=== PATIENT | male | born 1955 | race Caucasian/White ===

== ENCOUNTER → 2017-12-24 10:21 | Outpatient (CLI) | payer OTHER, SELFPAY ==
[2017-12-24 11:38] LABS: Alanine Aminotransferase 42 IU/L (21-72); Albumin 4.8 g/dL (3.5-5.0); Albumin Globulin Ratio 1.8 (1.0-2.8); Alkaline Phosphatase 48 U/L (38-126); Aspartate Aminotransferase 40 IU/L (17-59); BUN Creatinine Ratio 18.8 (6-22); Bilirubin Total 0.7 mg/dL (0.2-1.3); Blood Urea Nitrogen 15 mg/dL (9-20); Carbon Dioxide 33 mmol/L (22-32); Chloride 100 mmol/L (98-107); Cholesterol 180 mg/dL (140-199); Estimated Glomerular Filt Rate > 60.0 mL/min (>60); Globulin 2.7 g/dL (1.7-4.1); Glucose 88 mg/dL (80-110); HDL Cholesterol 54 mg/dL (40-60); HEMOLYSIS < 15 (0-50); LDL Cholesterol Calculated 95 mg/dL (<100); Potassium 4.8 mmol/L (3.4-5.1); Sodium 142 mmol/L (137-145); Total Protein 7.5 g/dL (6.3-8.2); Triglycerides 155 mg/dL (35-150)
[2017-12-24 11:54] LABS: Free T4, Direct Thyroxine 1.23 ng/dL (0.78-2.19)
[2017-12-24 12:08] LABS: Prostate Specific Antigen Scrn 0.696 ng/mL (0.1-4.0); Thyroid Stimulating Hormone 5.57 uIU/mL (0.47-4.68)
[2017-12-25 14:19] LABS: Ionized Calcium 5.8 mg/dL (4.8-5.6)
[2017-12-25 16:41] LABS: Parathyroid Hormone Int 62 pg/mL (14-64)
== END ==
PROVIDERS: Family Provider Internal Medicine; PCP Internal Medicine; Visit Provider Internal Medicine
DX: E03.8 Other specified hypothyroidism (principal); E21.3 Hyperparathyroidism, unspecified; E27.1 Primary adrenocortical insufficiency; E78.5 Hyperlipidemia, unspecified; Z12.5 Encounter for screening for malignant neoplasm of prostate
CPT/HCPCS: 36415; 80053; 80061; 82330; 83970; 84439; 84443; G0103

== ENCOUNTER → 2017-12-27 12:42 | Outpatient (CLI) | payer OTHER, SELFPAY | PROVIDERS: Family Provider Internal Medicine; PCP Internal Medicine; Visit Provider Internal Medicine | DX: M85.852 Other specified disorders of bone density and structure, left thigh (principal); E21.3 Hyperparathyroidism, unspecified; E27.1 Primary adrenocortical insufficiency; E03.8 Other specified hypothyroidism; Z82.62 Family history of osteoporosis | CPT/HCPCS: 77080 ==

== ENCOUNTER → 2018-07-19 07:26 | Outpatient (CLI) | payer MEDICARE, OTHER, SELFPAY ==
--- NOTE | 2018-07-19 10:34 | PM.TREADMILL ---
Cardiac Stress Test Report Referral & Results Date Patient Seen: 07/19/18 Requesting provider: Ava Covarrubias Indication: Chest Pain Procedure Note: Today following both written and verbal informed consent, the patient was exercised according to a standard Asa protocol. The patient exercised for a total of 11:37 achieving a maximum heart rate of 159. Patient's maximum systolic blood pressure was 170/90. This was an estimated 12.8 MET's. Impression: No signs or symptoms of ischemia or angina. Symptoms were not reproducible on exercise. No ischemic indicators on EKG. Functional impairment approximately-20% on the active scale. Frequent PVCs demonstrated on EKG. Low probability for ischemia. Please note: Actual ECG tracings can be found in the PACS system.
== END ==
PROVIDERS: Family Provider Internal Medicine; PCP Internal Medicine; Visit Provider Hospitalist
DX: R07.9 Chest pain, unspecified (principal)
CPT/HCPCS: 93016; 93017; 93018

== ENCOUNTER → 2019-01-04 08:54 | Outpatient (CLI) | payer MEDICARE, OTHER, SELFPAY ==
[2019-01-04 11:07] LABS: Alanine Aminotransferase 46 IU/L (<50); Albumin 4.7 g/dL (3.5-5.0); Albumin Globulin Ratio 1.7 (1.0-2.8); Alkaline Phosphatase 54 U/L (38-126); Aspartate Aminotransferase 45 IU/L (17-59); BUN Creatinine Ratio 22.5 (6-22); Bilirubin Total 0.6 mg/dL (0.2-1.3); Blood Urea Nitrogen 18 mg/dL (9-20); Carbon Dioxide 32 mmol/L (22-32); Chloride 100 mmol/L (98-107); Cholesterol 191 mg/dL (140-199); Estimated Glomerular Filt Rate > 60.0 mL/min (>60); Globulin 2.8 g/dL (1.7-4.1); Glucose 89 mg/dL (80-110); HDL Cholesterol 41 mg/dL (40-60); HEMOLYSIS < 15 (0-50); LDL Cholesterol Calculated 120 mg/dL (<100); Potassium 4.5 mmol/L (3.4-5.1); Sodium 139 mmol/L (137-145); Total Protein 7.5 g/dL (6.3-8.2); Triglycerides 148 mg/dL (35-150)
[2019-01-04 11:22] LABS: Free T4, Direct Thyroxine 1.47 ng/dL (0.78-2.19)
[2019-01-04 11:36] LABS: Prostate Specific Antigen Scrn 0.692 ng/mL (0.1-4.0); Thyroid Stimulating Hormone 0.89 uIU/mL (0.47-4.68)
[2019-01-07 16:35] LABS: Parathyroid Hormone Int 56 pg/mL (14-64)
== END ==
PROVIDERS: PCP Internal Medicine; Visit Provider Internal Medicine
DX: Z12.5 Encounter for screening for malignant neoplasm of prostate (principal); E03.8 Other specified hypothyroidism; E21.3 Hyperparathyroidism, unspecified; E27.1 Primary adrenocortical insufficiency; E78.5 Hyperlipidemia, unspecified
CPT/HCPCS: 36415; 80053; 80061; 83970; 84439; 84443; G0103

== ENCOUNTER → 2019-09-20 08:25 | Outpatient (CLI) | payer MEDICARE, OTHER, SELFPAY ==
[2019-09-20 09:11] LABS: Alanine Aminotransferase 31 IU/L (<50); Albumin 4.8 g/dL (3.5-5.0); Albumin Globulin Ratio 1.5 (1.0-2.8); Alkaline Phosphatase 50 U/L (38-126); Aspartate Aminotransferase 35 IU/L (17-59); BUN Creatinine Ratio 24.7 (6-22); Bilirubin Total 0.7 mg/dL (0.2-1.3); Blood Urea Nitrogen 22 mg/dL (9-20); Calcium 11.4 mg/dL (8.4-10.2); Carbon Dioxide 30 mmol/L (22-32); Chloride 100 mmol/L (98-107); Cholesterol 187 mg/dL (140-199); Estimated Glomerular Filt Rate > 60.0 mL/min (>60); Globulin 3.1 g/dL (1.7-4.1); Glucose 100 mg/dL (80-110); HDL Cholesterol 48 mg/dL (40-60); HEMOLYSIS < 15 (0-50); LDL Cholesterol Calculated 121 mg/dL (<100); Magnesium 2.2 mg/dL (1.6-2.3); Potassium 4.6 mmol/L (3.4-5.1); Sodium 136 mmol/L (137-145); Total Protein 7.9 g/dL (6.3-8.2); Triglycerides 88 mg/dL (35-150)
[2019-09-20 09:29] LABS: Free T4, Direct Thyroxine 1.33 ng/dL (0.78-2.19)
[2019-09-20 09:42] LABS: Prostate Specific Antigen Scrn 0.542 ng/mL (0.1-4.0)
[2019-09-20 09:43] LABS: Thyroid Stimulating Hormone 2.27 uIU/mL (0.47-4.68)
== END ==
PROVIDERS: PCP Internal Medicine; Referring Provider Internal Medicine; Visit Provider Internal Medicine
DX: E03.8 Other specified hypothyroidism (principal); E21.3 Hyperparathyroidism, unspecified; E27.1 Primary adrenocortical insufficiency; E78.5 Hyperlipidemia, unspecified; Z12.5 Encounter for screening for malignant neoplasm of prostate
CPT/HCPCS: 36415; 80053; 80061; 83735; 84439; 84443; G0103

== ENCOUNTER → 2019-10-04 14:02 | Outpatient (CLI) | payer MEDICARE, OTHER, SELFPAY ==
--- NOTE | 2019-10-20 16:20 | P.HOLT.S_ITS ---
[employer] Special [employer] Report Referral & Results Date Patient Seen: 10/04/19 Requesting provider: Quoc Barber Indication: Palpitations Duration of monitoring (days): 7 Diary information: There were 14 patient triggered events and 3 patient diary entries All of these events were associated (within 45 seconds) with sinus rhythm, PVCs, PACs, ventricular bigeminy, ventricular trigeminy Data: Minimum heart rate identified was 39 beats per minute at 02:31 on 10/06/2019 Maximum sinus heart rate was 142 beats per minute at 15:18 on 10/11/2019 Maximum overall heart rate was 193 beats per minute at 15:44 on 10/10/2019 during a 4 beat run of SVT Less than 1% of identified beats were supraventricular ectopic in origin Approximately 6.2% of identified beats were ventricular ectopic in origin which is a frequent dysrhythmia. These episodes included a 3 minutes 22nd run of ventricular trigeminy and a 1 minutes 52nd run of ventricular bigeminy Patient had 17 runs of SVT/atrial tachycardia the fastest being the 4 beat run as above and the longest being 9 beats at a rate of 103 which suggest atrial tachycardia Patient also had a 4 beat run of ventricular tachycardia Impression: Prominent primarily ventricular dysrhythmias above. Patient's sense of palpitations almost certainly due to these PVCs in some combination Clinical correlation suggested
== END ==
PROVIDERS: Family Provider Internal Medicine; PCP Internal Medicine; Referring Provider Internal Medicine; Visit Provider Internal Medicine
DX: R00.2 Palpitations (principal)
CPT/HCPCS: 0296T; 0298T

== ENCOUNTER → 2020-08-23 14:51 | Outpatient (CLI) | payer MEDICARE, OTHER, SELFPAY ==
[2020-08-23 18:16] LABS: Prostate Specific Antigen Scrn 0.656 ng/mL (0.1-4.0)
== END ==
PROVIDERS: Family Provider Internal Medicine; PCP Internal Medicine; Referring Provider Internal Medicine; Visit Provider Internal Medicine
DX: Z12.5 Encounter for screening for malignant neoplasm of prostate (principal)
CPT/HCPCS: 36415; G0103

== ENCOUNTER → 2021-02-14 14:17 | Outpatient (CLI) | payer MEDICARE, OTHER, SELFPAY ==
[2021-02-14 15:53] LABS: BUN Creatinine Ratio 18.3 (6-22); Blood Urea Nitrogen 22 mg/dL (9-20); Carbon Dioxide 32 mmol/L (22-32); Chloride 103 mmol/L (98-107); Estimated Glomerular Filt Rate > 60.0 mL/min (>60); Glucose 97 mg/dL (80-110); HEMOLYSIS < 15 (0-50); Potassium 4.9 mmol/L (3.4-5.1); Sodium 140 mmol/L (137-145)
[2021-02-14 17:00] LABS: Vitamin D 25 Hydroxy (D3) 41.4 ng/mL (30.0-100.0)
[2021-02-15 08:47] LABS: Parathyroid Hormone Int 67 pg/mL (15-65)
== END ==
PROVIDERS: Family Provider Internal Medicine; PCP Internal Medicine; Referring Provider Internal Medicine Endocrinology, Diabetes & Metabolism; Visit Provider Psychiatry & Neurology Neurology
DX: E21.0 Primary hyperparathyroidism (principal)
CPT/HCPCS: 36415; 80048; 82306; 83970

== ENCOUNTER → 2021-10-03 10:22 | Outpatient (CLI) | payer MEDICARE, OTHER, SELFPAY ==
--- NOTE | 2021-10-03 10:25 | DI.RAD.S_ITS ---
PROCEDURE: XR CHEST 2V INDICATIONS: chest discomfort TECHNIQUE: 2 views of the chest were acquired. COMPARISON: None. FINDINGS: Surgical changes and devices: None. Lungs and pleura: Lungs are clear. No pleural effusions or pneumothorax. Mediastinum: Mediastinal contours are normal. Heart size is normal. Bones and chest wall: No suspicious bony abnormalities. Soft tissues appear unremarkable. IMPRESSION: No acute cardiothoracic abnormality. Dictated by: Alexandru Ibrahim M.D. on 10/03/2021 at 12:20 Approved by: Alexandru Ibrahim M.D. on 10/03/2021 at 12:21
== END ==
PROVIDERS: Family Provider Internal Medicine; PCP Internal Medicine; Referring Provider Internal Medicine; Visit Provider Internal Medicine
DX: R07.9 Chest pain, unspecified (principal)
CPT/HCPCS: 71046

== ENCOUNTER → 2021-10-16 07:28 | Outpatient (CLI) | payer MEDICARE, OTHER, SELFPAY ==
[2021-10-16 09:13] LABS: Add Manual Diff / Slide Review NO; Basophils Absolute Auto 0 /uL (0-100); Basophils Percent Auto 0.7 % (0-2); Eosinophils Absolute Auto 200 /uL (0-450); Eosinophils Percent Auto 4.2 % (2-4); Hematocrit 41.9 % (41-53); Hemoglobin 14.4 g/dL (13.5-17.5); Lymphocytes Absolute Auto 1800 /uL (1100-4500); Lymphocytes Percent Auto 33.4 % (25-40); Mean Corpuscular HGB Conc 34.5 % (30-36); Mean Corpuscular Hemoglobin 29.8 PG (26-34); Mean Corpuscular Volume 86.5 fL (80-100); Monocytes Absolute Auto 500 /uL (0-900); Monocytes Percent Auto 8.6 % (3-14); Neutrophils Absolute Auto 2800 /uL (1500-7000); Neutrophils Percent Auto 53.1 % (50-75); Platelet Count 175 X10^3/uL (150-400); Red Blood Cell Count 4.84 X10^6/uL (4.5-5.9); Red Cell Distribution Width 13.4 % (11.6-14.8); White Blood Cell Count 5.3 X10^3/uL (4.5-11.0)
[2021-10-16 09:31] LABS: Alanine Aminotransferase 28 IU/L (<50); Albumin 4.1 g/dL (3.5-5.0); Albumin Globulin Ratio 1.5 (1.0-2.8); Alkaline Phosphatase 45 U/L (38-126); Aspartate Aminotransferase 34 IU/L (17-59); BUN Creatinine Ratio 18.5 (6-22); Bilirubin Total 0.6 mg/dL (0.2-1.3); Blood Urea Nitrogen 15 mg/dL (9-20); Calcium 10.5 mg/dL (8.4-10.2); Carbon Dioxide 31 mmol/L (22-32); Chloride 104 mmol/L (98-107); Cholesterol 173 mg/dL (140-199); Estimated Glomerular Filt Rate > 60 mL/min (>60); Globulin 2.7 g/dL (1.7-4.1); Glucose 78 mg/dL (80-110); HDL Cholesterol 48 mg/dL (40-60); HEMOLYSIS < 15 (0-50); LDL Cholesterol Calculated 97 mg/dL (<100); Potassium 4.4 mmol/L (3.4-5.1); Sodium 139 mmol/L (137-145); Total Protein 6.8 g/dL (6.3-8.2); Triglycerides 139 mg/dL (35-150); Uric Acid 5.3 mg/dL (3.5-8.5)
[2021-10-16 09:58] LABS: Free T4, Direct Thyroxine 1.21 ng/dL (0.78-2.19)
[2021-10-16 10:00] LABS: Prostate Specific Antigen Scrn 0.637 ng/mL (0.1-4.0)
[2021-10-16 10:11] LABS: Thyroid Stimulating Hormone 2.28 uIU/mL (0.47-4.68)
[2021-10-16 18:28] LABS: Vitamin D 25 Hydroxy (D3) 32.9 ng/mL (30.0-100.0)
[2021-10-17 05:28] LABS: Parathyroid Hormone Int 44 pg/mL (15-65)
== END ==
PROVIDERS: Family Provider Internal Medicine; PCP Internal Medicine; Referring Provider Internal Medicine; Visit Provider Internal Medicine
DX: E03.8 Other specified hypothyroidism (principal); Z12.5 Encounter for screening for malignant neoplasm of prostate; I10 Essential (primary) hypertension; M25.50 Pain in unspecified joint; E21.3 Hyperparathyroidism, unspecified; E78.5 Hyperlipidemia, unspecified; E27.1 Primary adrenocortical insufficiency; R07.9 Chest pain, unspecified
CPT/HCPCS: 36415; 80053; 80061; 82306; 83970; 84439; 84443; 84550; 85025; G0103

== ENCOUNTER → 2022-11-17 09:30 | Outpatient (CLI) | payer MEDICARE, OTHER, SELFPAY ==
[2022-11-17 11:48] LABS: Alanine Aminotransferase 31 IU/L (<50); Albumin 4.3 g/dL (3.5-5.0); Albumin Globulin Ratio 1.6 (1.0-2.8); Alkaline Phosphatase 42 U/L (38-126); Aspartate Aminotransferase 35 IU/L (17-59); BUN Creatinine Ratio 22.1 (6-22); Bilirubin Total 0.6 mg/dL (0.2-1.3); Blood Urea Nitrogen 17 mg/dL (9-20); Calcium 11.3 mg/dL (8.4-10.2); Carbon Dioxide 30 mmol/L (22-32); Chloride 104 mmol/L (98-107); Cholesterol 181 mg/dL (140-199); Estimated Glomerular Filt Rate > 60 mL/min (>60); Globulin 2.7 g/dL (1.7-4.1); Glucose 88 mg/dL (80-110); HDL Cholesterol 61 mg/dL (40-60); HEMOLYSIS < 15 (0-50); LDL Cholesterol Calculated 105 mg/dL (<100); Potassium 4.7 mmol/L (3.4-5.1); Sodium 139 mmol/L (137-145); Triglycerides 73 mg/dL (35-150)
[2022-11-17 12:17] LABS: Prostate Specific Antigen Scrn 0.579 ng/mL (0.1-4.0)
[2022-11-19 06:38] LABS: Parathyroid Hormone Int 42 pg/mL (15-65)
== END ==
PROVIDERS: Family Provider Internal Medicine; PCP Internal Medicine; Referring Provider Internal Medicine; Visit Provider Internal Medicine
DX: E03.8 Other specified hypothyroidism (principal); Z12.5 Encounter for screening for malignant neoplasm of prostate; I10 Essential (primary) hypertension; E21.3 Hyperparathyroidism, unspecified; E27.1 Primary adrenocortical insufficiency
CPT/HCPCS: 36415; 80053; 80061; 83970; G0103

== ENCOUNTER → 2022-11-30 14:11 | Outpatient (CLI) | payer MEDICARE, OTHER, SELFPAY ==
[2022-11-30 15:34] LABS: Add Manual Diff / Slide Review NO; Basophils Absolute Auto 0 /uL (0-100); Basophils Percent Auto 0.6 % (0-2); Eosinophils Absolute Auto 100 /uL (0-450); Eosinophils Percent Auto 1.2 % (2-4); Hematocrit 44.1 % (41-53); Hemoglobin 15.4 g/dL (13.5-17.5); Lymphocytes Absolute Auto 1400 /uL (1100-4500); Lymphocytes Percent Auto 18.1 % (25-40); Mean Corpuscular HGB Conc 34.8 % (30-36); Mean Corpuscular Hemoglobin 30.6 PG (26-34); Monocytes Absolute Auto 500 /uL (0-900); Monocytes Percent Auto 6.1 % (3-14); Neutrophils Absolute Auto 5800 /uL (1500-7000); Platelet Count 210 X10^3/uL (150-400); Red Blood Cell Count 5.02 X10^6/uL (4.5-5.9); Red Cell Distribution Width 13.7 % (11.6-14.8); White Blood Cell Count 7.8 X10^3/uL (4.5-11.0)
[2022-11-30 16:10] LABS: Alanine Aminotransferase 30 IU/L (<50); Albumin 4.4 g/dL (3.5-5.0); Albumin Globulin Ratio 1.4 (1.0-2.8); Alkaline Phosphatase 43 U/L (38-126); Aspartate Aminotransferase 33 IU/L (17-59); Bilirubin Total 0.4 mg/dL (0.2-1.3); Blood Urea Nitrogen 23 mg/dL (9-20); C-Reactive Protein Quant < 0.5 mg/dL (<1.0); Calcium 10.6 mg/dL (8.4-10.2); Carbon Dioxide 28 mmol/L (22-32); Chloride 102 mmol/L (98-107); Creatine Kinase 90 U/L (55-170); Estimated Glomerular Filt Rate > 60 mL/min (>60); Globulin 3.1 g/dL (1.7-4.1); Glucose 133 mg/dL (80-110); HEMOLYSIS < 15 (0-50); Potassium 4.1 mmol/L (3.4-5.1); Sodium 136 mmol/L (137-145); Total Protein 7.5 g/dL (6.3-8.2)
[2022-11-30 16:19] LABS: Erythrocyte Sedimentation Rate 1 MM/HR (0-15)
[2022-11-30 16:23] LABS: Free T4, Direct Thyroxine 0.78 ng/dL (0.78-2.19)
[2022-11-30 16:37] LABS: Thyroid Stimulating Hormone 9.93 uIU/mL (0.47-4.68)
== END ==
PROVIDERS: Family Provider Internal Medicine; PCP Internal Medicine; Referring Provider Internal Medicine; Visit Provider Internal Medicine
DX: E03.8 Other specified hypothyroidism (principal); I10 Essential (primary) hypertension; E21.3 Hyperparathyroidism, unspecified; M79.10 Myalgia, unspecified site
CPT/HCPCS: 36415; 80053; 82550; 84439; 84443; 85025; 85651; 86140

== ENCOUNTER 2023-06-17 12:17 | Day surgery (SDC) | payer MEDICARE, OTHER, SELFPAY ==
--- NOTE | 2023-06-17 | PATH_ITS ---
[facility] Accession Number: [id number] No. of containers..02 Tissue . 01 Material submitted: . PART A: stomach - ANTRUM PART B: stomach - FUNDUS . 01 Diagnosis: A. GASTRIC ANTRUM, BIOPSY: Gastric antral mucosa with mild chronic inflammation. Negative for Helicobacter organisms by immunohistochemistry. Negative for intestinal metaplasia. Negative for dysplasia or malignancy. . B. GASTRIC FUNDUS, BIOPSY: Features suggestive of fundic gland polyp. No evidence of Helicobacter organisms on H/E stain. Negative for intestinal metaplasia. Negative for dysplasia and malignancy. FRR 06/25/2023 1331 Local . 01 Electronically signed: . Leroy Samuel MD, PhD, Pathologist NPI- [id number] . 01 Gross description: . Part A: ANTRUM: Received in formalin are 2 fragment(s) of joyner, soft tissue measuring 0.1 x 0.1 x 0.1 cm to 0.3 x 0.3 x 0.2 cm submitted entirely in 1 cassette(s) Part B: FUNDUS: Received in formalin are 2 fragment(s) of joyner, soft tissue measuring 0.2 x 0.2 x 0.2 cm to 0.3 x 0.3 x 0.2 cm submitted entirely in 1 cassette(s) /NAOMY 06/21/2023 2307 Local . 01 Microscopic: . A. An immunohistochemical stain was performed to evaluate for Helicobacter organisms and is negative. The control stain showed appropriate reactivity. . * This test was developed and its performance characteristics determined by [facility]. It has not been cleared or approved by the U.S. Food and Drug Administration. The FDA has determined that such clearance or approval is not necessary. This test is used for clinical purposes. It should not be regarded as investigational or for research. . 01 Pathologist provided ICD-10: K29.70, K31.7 . 01 CPT . 514686, 586676, S16166 Specimen Comment: A courtesy copy of this report has been sent to [phone] Performed at: 01 [facility] [address] [place] [id number] MD Rito Grimes MD Phone: [phone]
[2023-06-17 13:09] VITALS: BP 178/78; PULSE 54; RESP 14; TEMP 36.3; O2SAT 100
[2023-06-17] MEDS: LACTATED RINGERS 1,000 ML 42 ML IV (13:29)
--- NOTE | 2023-06-17 13:45 | P.HP_ITS ---
History of Present Illness History of Present Illness Date Patient Seen: 06/17/23 Time Patient Seen: 13:45 [place] [facility] [place] Oral is a 67-year-old man who presents for a colonoscopy and an esophagogastroduodenoscopy. His last colonoscopy was about [address] Mead describes his colon as ?granular?. He also experiences reflux and occasional pain with swallowing. He has also had a history of a peptic ulcer in the past. 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) Atrial fibrillation (~1983) BPH (benign prostatic hyperplasia) Cardiac arrhythmia (~1984) Chicken pox (~1987) Depression (~1969) Diarrhea Essential hypertension Gastric ulcer (~2012) Gastroesophageal reflux disease (03/23/13) Hearing deficit Hyperparathyroidism (01/22/14) Hyperthyroidism (~1971) Measles (~1959) Mumps (~1959) Other and unspecified hyperlipidemia (01/07/11) Other specified hypothyroidism (01/07/11) Palpitations PVCs (premature ventricular contractions) Stroke (~2012) TIA (transient ischemic attack) (~2012) Vision disorder Surgical History Anesthesia History of tonsillectomy (~1959) Status post colonoscopy Family History Father Fam hx-ischem heart disease Hypertension ITP (idiopathic thrombocytopenic purpura) Skin cancer Heart disease High cholesterol Mother [facility] hx-ischem heart disease Family history of breast cancer Cancer Heart disease Hypertension Uterine cancer Social History marital status: number of children: 0 household members: spouse lives independently: Yes caregiver/support person: No housing: house pets and animals: Yes education level: college occupational status: other Previous occupational history: Software Training leisure activities: music and other Smoking Status: Never smoker Tobacco: How many years used: 0 quit status: quit date established second hand exposure: No alcohol intake: current substance use type: does not use Meds Home Medications and Allergies Home Medications Medication Instructions Recorded Confirmed Type CA PANTOTHENATE/FOLIC ACID/VIT 1 tab PO Q DAY ##0 01/07/11 11/30/22 History (MULTIVITAMIN) Gaviscon, Tums, Bicarbonate, etc See Rx Instructions .Route 09/26/19 11/30/22 History .COMPLEX daily acetaminophen 325 mg tablet 650 mg PO DAILY PRN 09/26/19 11/30/22 History aspirin 81 mg tablet,delayed 81 mg PO DAILY 09/26/19 11/30/22 History release (Adult Low Dose Aspirin) famotidine 10 mg tablet 10 mg PO DAILY 09/26/19 11/30/22 History melatonin 10 mg capsule 10 mg PO BEDTIME PRN 09/26/19 11/30/22 History sucralfate 1 gram tablet 1 g PO ACHS #120 tabs 01/15/20 11/30/22 Rx dexamethasone sodium phosphate 4 4 mg IM .COMPLEX #1 mL 10/26/22 11/30/22 Rx mg/mL injection solution metoprolol succinate 25 mg 25 mg PO DAILY #90 tabs 10/26/22 11/30/22 Rx tablet,extended release 24 hr prednisone 5 mg tablet See Rx Instructions .Route 10/26/22 11/30/22 Rx .COMPLEX #135 ea simvastatin 20 mg tablet 20 mg PO QDAY #90 tabs 10/26/22 11/30/22 Rx colchicine 0.6 mg capsule 0.6 mg PO DAILY gout #20 caps 12/01/22 Rx fludrocortisone 0.1 mg tablet 0.05 mg (1/2 x 0.1 mg) PO DAILY 12/01/22 Rx #45 ea levothyroxine 150 mcg tablet 150 mcg PO DAILY #90 ea 12/01/22 Rx levothyroxine 25 mcg tablet 25 mcg PO DAILY #90 tabs 12/01/22 Rx sodium,potassium,mag sulfates 17.5 See Rx Instructions PO .COMPLEX 12/29/22 Rx gram-3.13 gram-1.6 gram oral soln #354 mL (Suprep Bowel Prep Kit) Allergies Allergy/AdvReac Type Severity Reaction Status Date / Time Sulfa (Sulfonamide Allergy Mild FEELING Verified 06/17/23 13:15 Antibiotics) FLUSH/HEADACHES [SULFA (SULFONAMIDE ANTIBIOTICS)] fluoxetine AdvReac Mild TWITCH/DREAMS Verified 06/17/23 13:15 (ALL SSRI'S) SSRI Allergy Mild TWITCH/MICHELE Uncoded 06/17/23 13:15 MS Exam Vital Signs (past 8 hours): - 06/17/23 13:09 Temperature 97.4 F L Pulse Rate 54 L Respiratory Rate 14 Blood Pressure 178/78 H Pulse Oximetry 100 Oxygen Delivery Method Room Air Oxygen Delivery Method Room Air Const General: No acute distress Resp Effort & Inspection: normal respiratory effort Assessment & Plan Assessment and plan (1) Gastroesophageal reflux disease: Qualifiers: Esophagitis presence: without esophagitis Qualified Code(s): K21.9 - Gastro-esophageal reflux disease without esophagitis Status: Chronic (2) Odynophagia: Status: Acute (3) Colon cancer screening: Status: Acute Plan We reviewed the risks and benefits of EGD and colonoscopy and he would like to proceed.
[2023-06-17 14:10] LABS: Free T3, Triiodothyronine Free 3.96 pg/mL (2.77-5.27); Free T4, Direct Thyroxine 1.34 ng/dL (0.78-2.19)
[2023-06-17 14:24] LABS: Thyroid Stimulating Hormone 3.91 uIU/mL (0.47-4.68)
--- NOTE | 2023-06-17 15:04 | PM.OP.EC ---
Operative Date/Time/Diagnoses Date of procedure: 06/17/23 Time of procedure: 15:04 Pre-op diagnosis: Odynophagia and colon cancer screening Post-op diagnosis: same Procedure & Clinicians Study performed: EGD and colonoscopy Same procedure as scheduled: Yes Surgeon: Rick Zambrano Procedure Notes Procedure in detail: Surgeon: Rick Zambrano MD Anesthesia: Destinee Molina CRNA Procedure in detail: A timeout was performed. A bite blocked was placed and monitors were attached to the patient. The patient was positioned in the left lateral decubitus position. Sedation was administered. Once the patient was sedated the endoscope was inserted through the bite block and passed through the esophagus and stomach and into the duodenum. No abnormalities were seen in the duodenal. We then withdrew the scope into the stomach. There was mild antritis and random biopsies were taken from the antrum with cold forceps. The endoscope was retroflexed and moderate gastritis was noted in the fundus and random biopsies were taken with the cold forceps. No significant hiatal hernia was seen. The endoscope was straightned and withdrawn into the esophagus. No other abnormalities were seen. EGD findings: Mild antritis and moderate gastritis in the fundus Next we repositioned the patient for a colonoscopy. A digital rectal exam was performed and was normal. The colonoscope was inserted and advanced to the cecum. The appendiceal orifice was identified and photographed. The scope was slowly withdrawn over greater than 6 minutes. No abnormalities were found. The scope was retroflexed in the rectum and internal hemorrhoids were noted. Colonoscopy findings: Internal hemorrhoids Total procedural EBL: 5 mL Scope withdrawal time: 6 minutes Sedation minutes: 21 minutes Post-procedure Recommendations: Colonscopy in 10 years Disposition: PACU
[2023-06-17 15:07] VITALS: BP 90/55; PULSE 48; RESP 15; TEMP 36.2; O2SAT 95
[2023-06-17 15:12] VITALS: BP 91/56; PULSE 47; RESP 17; O2SAT 95
[2023-06-17 15:17] VITALS: BP 96/58; PULSE 43; RESP 16; O2SAT 98
[2023-06-17 15:22] VITALS: BP 134/74; PULSE 50; RESP 20; O2SAT 100
[2023-06-17 15:27] VITALS: BP 134/77; PULSE 47; RESP 14; TEMP 36.7; O2SAT 99
== END 2023-06-17 15:44 | disposition home or self-care (01) ==
PROVIDERS: Surgery; Family Provider Internal Medicine; PCP Internal Medicine; Referring Provider Surgery; Visit Provider Surgery
PROC: 0DJ08ZZ Inspection of Upper Intestinal Tract, Via Natural or Artificial Opening Endoscopic (ICD-10-PCS; CPT 43239; principal; 2023-06-17 13:15)
PROC: 0DJD8ZZ Inspection of Lower Intestinal Tract, Via Natural or Artificial Opening Endoscopic (ICD-10-PCS; CPT 45378; 2023-06-17 13:15)
DX: Z12.11 Encounter for screening for malignant neoplasm of colon (principal); R13.10 Dysphagia, unspecified; K64.8 Other hemorrhoids; K29.50 Unspecified chronic gastritis without bleeding
CPT/HCPCS: 43239; G0121; 36415; 84439; 84443; 84481; J2704

== ENCOUNTER → 2023-12-16 09:34 | Outpatient (CLI) | payer MEDICARE, OTHER, SELFPAY ==
[2023-12-16 10:10] LABS: Add Manual Diff / Slide Review NO; Basophils Absolute Auto 0 /uL (0-100); Basophils Percent Auto 0.3 % (0-2); Eosinophils Absolute Auto 0 /uL (0-450); Eosinophils Percent Auto 0.6 % (2-4); Hemoglobin 15.6 g/dL (13.5-17.5); Lymphocytes Absolute Auto 1000 /uL (1100-4500); Lymphocytes Percent Auto 13.5 % (25-40); Mean Corpuscular HGB Conc 33.9 % (30-36); Mean Corpuscular Hemoglobin 30.2 PG (26-34); Mean Corpuscular Volume 88.9 fL (80-100); Monocytes Absolute Auto 400 /uL (0-900); Monocytes Percent Auto 5.8 % (3-14); Neutrophils Absolute Auto 5900 /uL (1500-7000); Neutrophils Percent Auto 79.8 % (50-75); Platelet Count 212 X10^3/uL (150-400); Red Blood Cell Count 5.17 X10^6/uL (4.5-5.9); Red Cell Distribution Width 13.4 % (11.6-14.8); White Blood Cell Count 7.4 X10^3/uL (4.5-11.0)
[2023-12-16 10:32] LABS: Alanine Aminotransferase 31 IU/L (<50); Albumin 4.6 g/dL (3.5-5.0); Albumin Globulin Ratio 1.7 (1.0-2.8); Alkaline Phosphatase 54 U/L (38-126); Aspartate Aminotransferase 42 IU/L (17-59); BUN Creatinine Ratio 17.3 (6-22); Bilirubin Total 0.7 mg/dL (0.2-1.3); Blood Urea Nitrogen 14 mg/dL (9-20); Calcium 10.9 mg/dL (8.4-10.2); Carbon Dioxide 29 mmol/L (22-32); Chloride 104 mmol/L (98-107); Cholesterol 201 mg/dL (140-199); Estimated Glomerular Filt Rate > 60 mL/min (>60); Globulin 2.7 g/dL (1.7-4.1); Glucose 103 mg/dL (80-110); HDL Cholesterol 63 mg/dL (40-60); HEMOLYSIS < 15 (0-50); LDL Cholesterol Calculated 119 mg/dL (<100); Potassium 4.3 mmol/L (3.4-5.1); Sodium 140 mmol/L (137-145); Total Protein 7.3 g/dL (6.3-8.2); Triglycerides 96 mg/dL (35-150)
[2023-12-16 10:51] LABS: Free T3, Triiodothyronine Free 3.54 pg/mL (2.77-5.27); Free T4, Direct Thyroxine 1.14 ng/dL (0.78-2.19)
[2023-12-16 11:03] LABS: Prostate Specific Antigen Scrn 0.742 ng/mL (0.1-4.0)
== END ==
PROVIDERS: Family Provider Internal Medicine; PCP Internal Medicine; Referring Provider Internal Medicine; Visit Provider Internal Medicine
DX: I10 Essential (primary) hypertension (principal); Z12.5 Encounter for screening for malignant neoplasm of prostate; E03.8 Other specified hypothyroidism; E21.3 Hyperparathyroidism, unspecified; E78.5 Hyperlipidemia, unspecified
CPT/HCPCS: 36415; 80053; 80061; 82310; 83970; 84439; 84481; 85025; G0103

== ENCOUNTER → 2024-12-22 10:01 | Outpatient (CLI) | payer MEDICARE, OTHER, SELFPAY ==
[2024-12-22 12:08] LABS: Alanine Aminotransferase 25 IU/L (<50); Albumin 4.1 g/dL (3.5-5.0); Albumin Globulin Ratio 1.5 (1.0-2.8); Alkaline Phosphatase 57 U/L (38-126); Blood Urea Nitrogen 11 mg/dL (9-20); Calcium 10.6 mg/dL (8.4-10.2); Carbon Dioxide 28 mmol/L (22-32); Chloride 106 mmol/L (98-107); Cholesterol 166 mg/dL (140-199); Estimated Glomerular Filt Rate > 60 mL/min (>60); Globulin 2.7 g/dL (1.7-4.1); Glucose 92 mg/dL (70-99); HDL Cholesterol 60 mg/dL (40-60); HEMOLYSIS < 15 (0-50); Potassium 4.3 mmol/L (3.4-5.1); Sodium 140 mmol/L (137-145); Total Protein 6.8 g/dL (6.3-8.2); Triglycerides 76 mg/dL (35-150)
== END ==
PROVIDERS: PCP Internal Medicine; Referring Provider Internal Medicine; Visit Provider Internal Medicine
DX: E78.5 Hyperlipidemia, unspecified (principal); E21.3 Hyperparathyroidism, unspecified
CPT/HCPCS: 36415; 80053; 80061